=== PATIENT | female | born 1980 | race Caucasian/White ===

== ENCOUNTER → 2018-07-22 | Outpatient (REF) | payer OTHER | LOC: M SFHCLERA 14:19 | PROVIDERS: ATTEND Nurse Practitioner Family | DX: J02.9 Acute pharyngitis, unspecified (principal) ==

== ENCOUNTER → 2019-04-18 | Outpatient (REF) | payer OTHER | LOC: M SFHCLERA 11:09 | PROVIDERS: ATTEND Physician Assistant | DX: R30.0 Dysuria (principal) ==